=== PATIENT | female | born 1995 ===

== ENCOUNTER 2020-07-31 08:59 | Inpatient (IN) | payer MEDICAID, OTHER ==
[2020-07-31] MEDS ORDERED: AMPICILLIN/NS 2 GM/100 ML 2 GM/100 ML BAG IV ONE (10:39)
[2020-07-31] MEDS ORDERED: TERBUTALINE 1 MG/1 ML INJ SUB-Q PRN (10:39)
--- NOTE | 2020-07-31 10:47 | History and Physical Report ---
History of Present Illness Date of examination: 07/31/20 Date of admission: 07/31/2020 Chief complaint: My water broke at 0800 this morning and I have contractions History of present illness: Early entry to care at [facility], course has been uncomplicated. Past History Past Medical History: no pertinent history Past Surgical History: no surgical history Family/Genetic History: hypertension (mother) Social history: no significant social history - Obstetrical History Expected Date of Delivery: 07/31/20 Actual Gestation: 40 Week(s) 0 Day(s) : 3 Para: 1 Spontaneous Abortions: 1 Number of Living Children: 1 #1 Infant Gender: Female year: Birthweight: 3.175 kg Method of Delivery: Vaginal Gestational age at delivery: 40 Medications and Allergies Allergies Allergy/AdvReac Type Severity Reaction Status Date / Time doxycycline Allergy Rash Verified 07/31/20 10:20 Active Meds: Active Medications Ephedrine Sulfate (Ephedrine Sulfate 50 Mg/1 Ml Inj) 10 mg IV Q2M PRN PRN Reason: Hypotension Oxytocin/Sodium Chloride (Pitocin/Ns 30 Unit/500ml) 30 units in 500 mls @ 4 mls/hr IV TITR GEE; Protocol Lidocaine (Lidocaine (2%) 20 Mg/1 Ml Vial 20 Ml Mdv) 20 ml INFILTRATI ONCE ONE Stop: 07/31/20 10:40 Mineral Oil (Mineral Oil 30 Ml Oral Liqd) 30 ml PO QHS PRN PRN Reason: Constipation Terbutaline Sulfate (Terbutaline 1 Mg/1 Ml Inj) 0.25 mg SUB-Q ONCE PRN PRN Reason: Hyperstimulation/Hypertonicity Review of Systems All systems: negative - Vital Signs Vital signs: Vital Signs Temp Pulse Resp BP 98.7 F 100 H 16 123/72 07/31/20 10:22 07/31/20 10:22 07/31/20 10:22 07/31/20 10:22 Temp Pulse Resp BP Pulse Ox 98.7 F 100 H 16 123/72 07/31/20 10:22 07/31/20 10:24 07/31/20 10:22 07/31/20 10:24 - Physical Exam Breasts: Positive: normal Cardiovascular: Regular rate Lungs: Positive: Clear to auscultation Abdomen: Positive: normal appearance, soft, normal bowel sounds Genitourinary (Female): Positive: normal external genitalia, normal perenium Vagina: Positive: normal moisture Uterus: Positive: enlarged Anus/Rectum: Positive: normal perianal skin Extremities: Positive: normal - Obstetrical FHR: category 1 Uterine Contraction Monitor Mode: External Cervical Dilatation: 4.5 (BOW palpated) Cervical Effacement Percentage: 60 station: -2 Uterine Contraction Pattern: Irregular Uterine Tone Measurement Phase: Resting Uterine Contraction Intensity: Moderate Results All other labs normal. Assessment and Plan A: IUP @ 40 Weeks Category I Tracing Early Labor GBS Positive P: Admit to L&D Per Routine Orders GBS Prophylaxis Pitocin Augmentation
[2020-07-31] MEDS ORDERED: BUTORPHANOL 2 MG/1 ML INJ IV PRN (11:00)
[2020-07-31] MEDS ORDERED: LIDOCAINE (2%) 20 MG/1 ML VIAL 20 ML MDV INFILTRATI ONE ×2 (11:00→14:33)
[2020-07-31] MEDS ORDERED: LACTATED RINGERS 1,000 ML IV SCH (11:00)
[2020-07-31] MEDS ORDERED: ONDANSETRON 4 MG/2 ML INJ IV PRN (11:00)
[2020-07-31] MEDS ORDERED: NALOXONE 0.4 MG/1 ML INJ IV PRN (11:00)
[2020-07-31] MEDS ORDERED: ePHEDrine SULFATE 50 MG/1 ML INJ IV PRN (11:00)
[2020-07-31] MEDS ORDERED: OXYTOCIN DRIP 30 UNITS/500 ML BAG IV SCH ×2 (11:00)
[2020-07-31 11:07] LABS: Hematocrit 41.5 % (30.3-42.9); Hemoglobin 14.2 gm/dl (10.1-14.3); Mean Corpuscular HGB Conc 34 % (30-34); Mean Corpuscular Volume 91 fl (79-97); Platelet Count 184 K/mm3 (140-440); Red Blood Count 4.54 M/mm3 (3.65-5.03)
--- NOTE | 2020-07-31 11:49 | Progress Note ---
Assessment and Plan A: IUP @ 40 Weeks Category I Tracing Early Labor GBS Positive P: AROM GBS Prophylaxis Pitocin Augmentation Subjective - Subjective Date of service: 07/31/20 Interval history: Early entry to care at [facility], course has been uncomplicated. Patient reports: movement normal, contractions Objective - Vital Signs Vital Signs: Vital Signs - 12hr 07/31/20 07/31/20 07/31/20 10:22 10:24 11:11 Temperature 98.7 F Pulse Rate 100 H 100 H 99 H Respiratory 16 Rate Blood Pressure 123/72 122/75 Blood Pressure 123/72 [Left] O2 Sat by Pulse 97 Oximetry 07/31/20 07/31/20 07/31/20 11:12 11:16 11:21 Temperature 98.0 F Pulse Rate 100 H 103 H Respiratory 16 Rate Blood Pressure Blood Pressure [Left] O2 Sat by Pulse 97 97 97 Oximetry 07/31/20 07/31/20 07/31/20 11:26 11:31 11:36 Temperature Pulse Rate 105 H 110 H 107 H Respiratory Rate Blood Pressure Blood Pressure [Left] O2 Sat by Pulse 97 97 98 Oximetry 07/31/20 07/31/20 11:41 11:46 Temperature Pulse Rate 91 H 97 H Respiratory Rate Blood Pressure Blood Pressure [Left] O2 Sat by Pulse 97 97 Oximetry - Exam Breasts: normal Lungs: Normal air movement Abdomen: Present: normal appearance, soft Uterus: Present: normal, firm, fundal height above umbilicus FHR: category 1 Uterine Contraction Monitor Mode: External Cervical Dilatation: 5 (Small amount of clear fluid upon AROM at 1143) Cervical Effacement Percentage: 70 station: -2 Uterine Contraction Pattern: Regular Uterine Tone Measurement Phase: Resting Uterine Contraction Intensity: Moderate Extremities: normal - Labs Labs: Abnormal Labs 07/31/20 07/31/20 10:00 Unknown WBC 12.6 H Membranes Rupture Positive A Laboratory Results - last 24 hr 07/31/20 07/31/20 10:00 Unknown WBC 12.6 H RBC 4.54 Hgb 14.2 Hct 41.5 MCV 91 MCH 31 MCHC 34 RDW 14.0 Plt Count 184 Membranes Rupture Positive A
[2020-07-31] MEDS ORDERED: MINERAL OIL 30 ML ORAL LIQD ONE ×2 (14:26→14:32)
[2020-07-31] MEDS ORDERED: AMPICILLIN/NS 1 GM/50 ML 1 GM/50 ML BAG IV SCH (15:00)
--- NOTE | 2020-07-31 15:20 | Procedure Note ---
OB Delivery Note - Delivery Date of Delivery: 07/31/20 (1444) Surgeon: BAHMAN CHESTER Estimated blood loss: 300cc - Vaginal Delivery presentation: vertex Delivery position: OA Intrapartum events: none Delivery induction: none Delivery augmentation: rupture of membranes, pitocin Delivery monitor: external FHT, internal uterine Route of delivery: Delivery placenta: spontaneous Delivery cord: 3 umbilical vessels Episiotomy: none Delivery laceration: 2nd degree Delivery repair: vicryl Anesthesia: local Delivery comments: of a live 6'13 female infant over a 1st degree vaginal and 2nd degree left labial laceration without pain control with Apgars of 8 and 9 at 1444 on 07/31/2020. directly to maternal abd/chest, skin to skin contact. Labial and vaginal lacerations repaired with 2-[address]-1 under local 2% Lidocaine. Spontaneous delivery of placenta complete and intact with Marcano side presenting at 1458. Fundus is firm and midline located 4 below the U. Lochia is scant. Placenta to be discarded. Cord blood collected. GBS prophylaxis x 1. - A at 1 minute: 8 at 5 minutes: 9 Gender: Female ()
[2020-07-31] MEDS ORDERED: WITCH HAZEL/ GLYCERIN PAD TP PRN (15:25)
[2020-07-31] MEDS ORDERED: LANOLIN/ZINC/DIMETHICONE (LANSINOH) 7 GM TP PRN (15:25)
[2020-07-31] MEDS ORDERED: diphenhydrAMINE 25 MG CAP PO PRN (15:25)
[2020-07-31] MEDS: IBUPROFEN 600 MG TAB PO SCH ×2 (15:57→22:09)
[2020-07-31] MEDS: PRENATAL VIT27-FE FUMARATE-FOLIC ACID VIT TAB PO SCH (15:59)
[2020-07-31] MEDS ORDERED: ACETAMINOPHEN 500 MG TAB PO ONE (17:00)
[2020-07-31] MEDS ORDERED: MINERAL OIL 30 ML ORAL LIQD PO PRN (22:00)
[2020-08-01] MEDS: IBUPROFEN 600 MG TAB PO SCH ×4 (03:00→21:58)
[2020-08-01 08:05] LABS: Hematocrit 32.3 % (30.3-42.9); Hemoglobin 11.2 gm/dl (10.1-14.3)
--- NOTE | 2020-08-01 09:03 | Progress Note ---
Assessment and Plan PPD # 1 A: S/P Continue routine pp care D/C home today after 3pm per pt's request Subjective - Subjective Date of service: 08/01/20 Principal diagnosis: s/p Patient reports: appetite normal, voiding normally, pain well controlled, ambulating normally Taylor: doing well, bottle feeding Objective - Vital Signs Latest vital signs: Vital Signs Temp Pulse Resp BP BP Pulse Ox 08/01/20 04:30 98.7 F 81 16 119/75 08/01/20 00:30 98.6 F 82 16 111/72 07/31/20 19:55 98.7 F 77 16 115/78 07/31/20 17:53 98.4 F 105 H 19 113/71 07/31/20 16:44 90 07/31/20 16:43 140 H 89 07/31/20 16:42 100.7 F H 07/31/20 16:39 102 H 111/59 07/31/20 16:08 117 H 91 07/31/20 16:06 103 H 97 07/31/20 16:01 103 H 95 07/31/20 15:59 103 H 105/66 07/31/20 15:56 103 H 97 07/31/20 15:51 104 H 96 07/31/20 15:49 98 H 93 07/31/20 15:46 105 H 97 07/31/20 15:41 111 H 96 07/31/20 15:39 114 H 92 07/31/20 15:36 111 H 97 07/31/20 15:31 100 H 98 07/31/20 15:27 100 H 116/63 07/31/20 15:26 105 H 97 07/31/20 15:22 97 H 114/67 07/31/20 15:21 107 H 96 07/31/20 15:17 118 H 135/77 07/31/20 15:16 107 H 97 07/31/20 15:14 111 H 93 07/31/20 15:11 111 H 97 07/31/20 15:06 110 H 98 07/31/20 15:05 113 H 97/41 07/31/20 15:01 109 H 98 07/31/20 14:59 117 H 88 07/31/20 14:56 119 H 99 07/31/20 14:55 120 H 131/59 07/31/20 14:51 117 H 98 07/31/20 14:46 111 H 140/61 97 07/31/20 14:41 95 H 98 07/31/20 14:39 84 82 L 07/31/20 14:36 89 98 07/31/20 14:31 86 99 07/31/20 14:26 85 98 07/31/20 14:22 84 94 07/31/20 14:21 86 98 07/31/20 14:18 78 145/62 07/31/20 14:16 86 91 07/31/20 14:12 88 94 07/31/20 14:11 86 97 07/31/20 14:06 84 98 07/31/20 14:04 88 94 07/31/20 14:01 83 97 07/31/20 13:56 92 H 97 07/31/20 13:54 96 H 93 07/31/20 13:51 83 98 07/31/20 13:46 83 127/93 98 07/31/20 13:41 104 H 96 07/31/20 13:40 89 93 07/31/20 13:36 96 H 97 07/31/20 13:31 92 H 97 07/31/20 13:26 85 96 07/31/20 13:21 86 97 07/31/20 13:16 98 H 97 07/31/20 13:11 105 H 97 07/31/20 13:06 91 H 97 07/31/20 13:01 96 H 98 07/31/20 12:56 101 H 97 07/31/20 12:51 93 H 98 07/31/20 12:46 99 H 97 07/31/20 12:41 118 H 97 07/31/20 12:36 104 H 97 07/31/20 12:31 96 H 96 07/31/20 12:26 96 H 97 07/31/20 12:21 111 H 97 07/31/20 12:16 107 H 98 07/31/20 12:11 111 H 98 07/31/20 12:06 101 H 99 07/31/20 12:01 105 H 97 07/31/20 11:56 97 H 98 07/31/20 11:51 91 H 97 07/31/20 11:46 97 H 97 07/31/20 11:41 91 H 97 07/31/20 11:36 107 H 98 07/31/20 11:31 110 H 97 07/31/20 11:26 105 H 97 07/31/20 11:21 103 H 97 07/31/20 11:16 100 H 97 07/31/20 11:12 98.0 F 16 97 07/31/20 11:11 99 H 122/75 97 07/31/20 10:24 100 H 123/72 07/31/20 10:22 98.7 F 100 H 16 123/72 Intake and Output 07/31/20 08/01/20 08/01/20 22:59 06:59 14:59 Intake Total 200 300 Output Total 300 Balance -100 300 Intake: Oral 200 Intake, Free Water 300 Output: Urine 300 Void 300 Other: Total, Intake Amount 200 Total, Output Amount 300 # Voids Void 1 - Exam Breasts: Present: normal Abdomen: Present: normal appearance, soft, normal bowel sounds Vulva: both: normal Uterus: Present: normal, firm, fundal height below umbilicus Extremities: Present: normal Incision: Present: normal, intact - Labs Labs: Abnormal lab results 07/31/20 07/31/20 Range/Units 10:00 Unknown WBC 12.6 H (4.5-11.0) K/mm3 Membranes Rupture Positive A (Negative)
--- NOTE | 2020-08-01 09:10 | Discharge Summary ---
Providers - Providers Date of Admission: 07/31/20 12:07 Date of discharge: 08/01/20 Attending physician: QI RAMOS MD Primary care physician: QI RAMOS MD Hospitalization Reason for admission: active labor, IUP at term Delivery: Episiotomy: none Laceration: 1st degree, 2nd degree Incision: normal, intact Other procedures: none complications: none Discharge diagnosis: IUP at term delivered baby: female Hospital course: Pt was admitted to [facility] in active labor. She had a w/o pp complications. See H&P, Delivery summary, and PP notes. Condition at discharge: Stable Disposition: DC-01 TO HOME OR SELFCARE Plan - Discharge Medications Prescriptions: Ibuprofen [Motrin 600 MG tab] 600 mg PO Q6H #30 tablet - Provider Discharge Summary Activity: routine, no sex for 6 weeks, no heavy lifting 4 weeks, no strenuous exercise Diet: routine Instructions: routine Additional instructions: [] Smoking cessation referral if applicable(refer to patient education folder for contact #) [] Refer to [facility]'s [facility] Booklet Call your doctor immediately for: * Fever > 100.5 * Heavy vaginal bleeding ( >1 pad per hour) * Severe persistent headache * Shortness of breath * Reddened, hot, painful area to leg or breast * Drainage or odor from incision. * Keep incision clean and dry at all times and follow doctor's instructions regarding bathing/showering - Follow up plan Follow up: QI RAMOS MD [Primary Care Provider] - 6 Weeks
[2020-08-01] MEDS: PRENATAL VIT27-FE FUMARATE-FOLIC ACID VIT TAB PO SCH (10:08)
[2020-08-02] MEDS: IBUPROFEN 600 MG TAB PO SCH ×2 (06:14→12:16)
--- NOTE | 2020-08-02 09:25 | Discharge Summary ---
Providers - Providers Date of Admission: 07/31/20 12:07 Date of discharge: 08/02/20 Attending physician: QI RAMOS MD Primary care physician: QI RAMOS MD Hospitalization Reason for admission: active labor Delivery: complications: none Condition at discharge: Stable Disposition: DC-01 TO HOME OR SELFCARE Plan - Discharge Medications Prescriptions: Ibuprofen [Motrin 600 MG tab] 600 mg PO Q6H #30 tablet - Provider Discharge Summary Additional instructions: [] Smoking cessation referral if applicable(refer to patient education folder for contact #) [] Refer to [facility]'s [facility] Booklet Call your doctor immediately for: * Fever > 100.5 * Heavy vaginal bleeding ( >1 pad per hour) * Severe persistent headache * Shortness of breath * Reddened, hot, painful area to leg or breast * Drainage or odor from incision. * Keep incision clean and dry at all times and follow doctor's instructions regarding bathing/showering - Follow up plan Follow up: QI RAOMS MD [Primary Care Provider] - 6 Weeks
[2020-08-02] MEDS: PRENATAL VIT27-FE FUMARATE-FOLIC ACID VIT TAB PO SCH (10:10)
[2020-08-02 15:41] VITALS: BP 112/72
== END 2020-08-02 15:40 | disposition home or self-care (01) | DRG 807 ==
LOC: TRG 08:59 → APU 09:02 → LD 11:56 → TRG 12:06 → LD 12:07 → OB 18:14
PROC: 10E0XZZ Delivery of Products of Conception, External Approach (ICD-10-PCS; principal; 2020-07-31)
PROC: 0KQM0ZZ Repair Perineum Muscle, Open Approach (ICD-10-PCS; 2020-07-31)
PROC: 10907ZC Drainage of Amniotic Fluid, Therapeutic from Products of Conception, Via Natural or Artificial Opening (ICD-10-PCS; 2020-07-31)
DX: O99.824 Streptococcus B carrier state complicating childbirth (principal); Z37.0 Single live birth; Z3A.40 40 weeks gestation of pregnancy; Z20.822 Contact with and (suspected) exposure to COVID-19; O70.1 Second degree perineal laceration during delivery
CPT/HCPCS: 36415; 84112; 85014; 85018; 85027; 86850; 86900; 86901; 96360; 96361; 96365; 96366; G0378; J0290; J2590; J7120; U0003